=== PATIENT | male | born 1975 | race Caucasian/White ===

== ENCOUNTER 2018-05-14 12:08 | Emergency (ER) | END 2018-05-14 17:46 | disposition home or self-care (01) ==

== ENCOUNTER 2018-05-23 22:55 | Emergency (ER) | END 2018-05-24 01:30 | disposition home or self-care (01) ==

== ENCOUNTER 2018-08-22 23:26 | Emergency (ER) | payer MEDICAID ==
[~2018-08-22] VITALS: Ht 175.3 cm; Wt 65.9 kg
[~2018-08-22 23:26] MED LIST: AZIT500T3 PO; BACITUD TOP; CIPR500T4 PO; METR500T PO
[2018-08-22 23:49] VITALS: BP 133/87; PULSE 106; RESP 20; Ht 175.3 cm; Wt 65.9 kg
--- NOTE | 2018-08-23 04:19 | ERD ---
ER Documentation Chief Complaint Chief Complaint right foot pain, states stepped on a pot hole x 4 days ago HPI 43-year-old male presents to emergency department for complaints of right foot pain after accidentally stepping on a pothole 4 days ago, twisted ankle also, complains of pain throbbing pain, 6/10 scale, accompanied with swelling, patient did not take any medications to help with symptoms. Patient denies any deformity. ROS All systems reviewed and are negative except as per history of present illness. Medications Home Meds Active Scripts Bacitracin* (Bacitracin Oint (UD)*) 1 Applic Oint, 1 APPLIC TOP ONCE for 7 Days, PKT APPLY TO Prov:STALINHADAMJDMENDY S. 05/24/18 Metronidazole* (Flagyl*) 500 Mg Tablet, 500 MG PO TID for 7 Days, TAB Prov:MOGHADAM,MENDY S. 05/24/18 Ciprofloxacin Hcl* (Ciprofloxacin Hcl*) 500 Mg Tablet, 500 MG PO BID for 7 Days, TAB Prov:STALINHADAM,MENDY S. 05/24/18 Metronidazole* (Flagyl*) 500 Mg Tablet, 500 MG PO BID for 5 Days, TAB Prov:JERRY REDMOND-C 05/14/18 Azithromycin* (Zithromax*) 500 Mg Tablet, 500 MG PO DAILY for 3 Days, TAB Prov:JERRY REDMOND-C 05/14/18 Allergies Allergies: Coded Allergies: cephalexin (Verified Allergy, Unknown, 05/23/18) PMhx/Soc History of Surgery: Yes (TESTICLE, LEFT KIDNEY) Hx Alcohol Use: No Hx Substance Use: No Hx Tobacco Use: No Smoking Status: Never smoker FmHx Family History: No diabetes, No coronary disease, No other Physical Exam Vitals Vital Signs Date Temp Pulse Resp B/P (MAP) Pulse Ox O2 O2 Flow FiO2 Time Delivery Rate 08/22/18 97.1 106 20 133/87 98 23:49 (102) Physical Exam GENERAL: The patient is well developed and appropriate for usual state of health, in no apparent distress. CHEST: Clear to auscultation bilaterally. There are no rales, wheezes or rhonchi. HEART: Regular rate and rhythm. No murmurs, clicks, rubs or gallops. No S3 or S4. ABDOMEN: Soft, nontender and nondistended. Good bowel sounds. No rebound or guarding. No gross peritonitis. No gross organomegaly or masses. No Cordon sign or McBurney point tenderness. BACK: No midline or flank tenderness. EXTREMITIES: Noted swelling tenderness on palpation on the dorsal aspect of the right foot, no deformity noted, tenderness on palpation of the lateral malleolus of the right ankle. Equal pulses bilaterally. There is no peripheral clubbing, cyanosis or edema. No focal swelling or erythema. Full range of motion. Grossly neurovascularly intact. NEURO: Alert and oriented. Cranial nerves 2-12 intact. Motor strength in all 4 extremities with 5/5 strength. Sensation grossly intact. Normal speech and gait . SKIN: There is no apparent rash or petechia. The skin is warm and dry. HEMATOLOGIC AND LYMPHATIC: There is no evidence of excessive bruising or lymphedema. No gross cervical, axillary, or inguinal lymphadenopathy. Results 24 hrs Current Medications Medications Dose Sig/Ernie Start Time Status Last (Trade) Ordered Route PRN Stop Time Admin Dose Reason Admin Ibuprofen 600 mg ONCE ONCE 08/23/18 DC 08/23/18 (Motrin) PO 04:30 04:42 08/23/18 04:31 Patient was given medication for pain here in emergency department, after treatment, patient verbalized feeling much better. Patient's pain is improved. PROCEDURE: XR Ankle Right 3 View (Routine CLINICAL INDICATION: Pain. TECHNIQUE: VIEWS: 3 IMAGES: 3 COMPARISON: Concurrent right foot x-rays FINDINGS: OSSEOUS STRUCTURES Fractures: None. JOINTS Joint Space(s): Preserved. SOFT TISSUES: Medial and lateral soft tissue swelling is noted. IMPRESSION: 1. No acute osseous abnormalities. RPTAT:HGST Lane Paez Physician Date Time Electronically viewed and signed by Lane Paez Physician on 08/23/2018 05:15 GT/ CC: DONALD RIVERA NP [id number] PROCEDURE: XR Foot Right 3 View (Routine) CLINICAL INDICATION: Pain. TECHNIQUE: VIEWS: 3 IMAGES: 3 COMPARISON: Concurrent right ankle x-rays. FINDINGS: OSSEOUS STRUCTURES Fractures: None. Morphology: Hallux valgus deformity is present with bunion formation. JOINTS Joint Space(s): Preserved. SOFT TISSUES: Ankle and forefoot soft tissue swelling is noted. IMPRESSION: 1. No acute osseous abnormalities. RPTAT:HGST Lane Paez, Physician Date Time Electronically viewed and signed by Lane Paez, Physician on 08/23/2018 05:16 GT/ CC: DONALD RIVERA ACTIVATED SLUDGE ATTENDANT [id number] After receiving patients xray report, an Nicolas wrap was applied on the patients right foot and ankle. After application of the Nicolas wrap, patient has intact sensation and circulation on distal area of the affected joint. Patient does not complain of numbness or tingling after application of the Nicolas wrap. Patient tolerated procedure well. Crutches were given to use afterwards. Procedures/MDM Medical Decision Making: Patient's pain is most likely consistent with a ankle and foot contusion or a sprain. There is no suspicion for neurovascular compromise. Patient has intact sensation and circulation of the affected extremity. There is low suspicion for septic arthritis. Patient does not have any fever. Radiology exams of the affected area does not show any fracture or dislocation. Disposition: Home. Patient is given prescription for ibuprofen for pain. Patient was advised to elevate the affected area and apply ice on affected area. Patient was advised that if symptoms are worse, numbness, tingling, high fever, unable to move joint, worsening symptoms, to return to emergency department immediately. Otherwise, patient is advised to follow up with the primary care doctor in 5-7 days for reevaluation of symptoms. Disclaimer: Inadvertent spelling and grammatical errors are likely due to EHR/dictation software use and do not reflect on the overall quality of patient care. Also, please note that the electronic time recorded on this note does not necessarily reflect the actual time of the patient encounter. Departure Diagnosis: Primary Impression: Ankle sprain Encounter type: initial encounter Involved ligament of ankle: unspecified ligament Laterality: right Qualified Codes: S93.401A - Sprain of unspecified ligament of right ankle, initial encounter Additional Impression: Foot sprain Encounter type: initial encounter Laterality: right Qualified Codes: S93.601A - Unspecified sprain of right foot, initial encounter Condition: Stable Patient Instructions: Treating Ankle Sprains, Sprain Foot Additional Instructions: Patient is given prescription for ibuprofen for pain. Patient was advised to elevate the affected area and apply ice on affected area. Patient was advised that if symptoms are worse, numbness, tingling, high fever, unable to move joint, worsening symptoms, to return to emergency department immediately. Otherwise, patient is advised to follow up with the primary care doctor in 5-7 days for reevaluation of symptoms. DONALD RIVERA NP Aug 23, 2018 04:19
[2018-08-23] MEDS ORDERED: IBUPROFEN 600 MG TAB PO ONE (04:30)
[2018-08-23] MEDS ORDERED: IBUP-1542 PO (05:25)
== END 2018-08-23 05:56 | disposition home or self-care (01) ==
LOC: FTE 23:26
DX: S93.601A Unspecified sprain of right foot, initial encounter (principal); S93.401A Sprain of unspecified ligament of right ankle, initial encounter; W18.42XA Slipping, tripping and stumbling without falling due to stepping into hole or opening, initial encounter; Y92.9 Unspecified place or not applicable
CPT/HCPCS: 73610; 73630; Z7502; Z7610